=== PATIENT | male | born 1975 | race African-American/Black ===

== ENCOUNTER 2018-12-04 12:08 | Emergency (ER) | payer SELFPAY ==
[~2018-12-04] VITALS: Ht 190.5 cm; Wt 93.0 kg
[2018-12-04 13:30] VITALS: BP 142/81
== END 2018-12-04 14:53 | disposition home or self-care (01) ==
LOC: ER 12:08
DX: R53.1 Weakness (principal); R42 Dizziness and giddiness; F12.90 Cannabis use, unspecified, uncomplicated
CPT/HCPCS: 93005; 99283